=== PATIENT | female | born 1990 ===

== ENCOUNTER 2019-08-21 14:46 | Emergency (ER) | payer BC, MEDICAID, OTHER ==
[~2019-08-21] VITALS: Ht 170 cm; Wt 68.0 kg
--- NOTE | 2019-08-21 16:28 | ED GU-Female ---
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 HAVING SL CRAMPING AT TIMES. 1 PAD Nursing Sepsis Screen: No Definite Risk Source: patient Exam Limitations: no limitations History of Present Illness Date Seen by Provider: Aug 21, 2019 Time Seen by Provider: 16:27 Initial Comments To ER with intermittent lower abdominal cramping, reddish streaks on the toilet paper when wiping after urinating. This is been ongoing for a few days. She is about 6 weeks' gestation. Timing/Duration: just prior to arrival Severity/Quality: cramping Location: suprapubic Radiation: none Activities at Onset: none Prior Genitourinary Problems: none Associated Symptoms: denies symptoms Allergies and Home Medications Allergies Coded Allergies: No Known Drug Allergies (Unverified , 08/21/19) Home Medications No Active Prescriptions or Reported Meds Patient Home Medication List Home Medication List Reviewed: Yes Review of Systems Review of Systems Constitutional: see HPI EENTM: see HPI Respiratory: no symptoms reported Cardiovascular: no symptoms reported Genitourinary: no symptoms reported Musculoskeletal: no symptoms reported Skin: no symptoms reported Psychiatric/Neurological: No Symptoms Reported Past Qfvbtrj-Wxazqe-Wvumwi Hx Patient Social History Alcohol Use: Denies Use Recreational Drug Use: No Smoking Status: Never a Smoker Recent Foreign Travel: No Contact w/Someone Who Travel: No Recent Infectious Disease Expo: No Recent Hopitalizations: No Physical Abuse: No Sexual Abuse: No Past Medical History Surgeries: No Respiratory: No Cardiac: No Neurological: No Last Menstrual Period: Jun 11, 2019 Hx : 4 Hx Para: 3 Genitourinary: No Gastrointestinal: No Musculoskeletal: No Endocrine: No HEENT: No Cancer: No Psychosocial: No Integumentary: No Physical Exam Vital Signs Vital Signs - First Documented 08/21/19 14:55 Temp 37.0 Pulse 81 Resp 18 B/P (MAP) 119/78 (92) Pulse Ox 97 Capillary Refill : Less Than 3 Seconds Height, Weight, BMI Height: '" Weight: lbs. oz. kg; 23.00 BMI Method: General Appearance: WD/WN, no apparent distress HEENT: PERRL/EOMI, normal ENT inspection Respiratory: no respiratory distress, no accessory muscle use Gastrointestinal: normal bowel sounds, non tender Neurologic/Psychiatric: alert, normal mood/affect, oriented x 3 Skin: normal color, warm/dry Progress/Results/Core Measures Suspected Sepsis Recent Fever Within 48 Hours: No Infection Criteria Present: None New/Unexplained Altered Menta: No Sepsis Screen: No Definite Risk SIRS Temperature: Pulse: 81 Respiratory Rate: 18 Laboratory Tests 08/21/19 16:30: White Blood Count 7.9 Blood Pressure 119 /78 Mean: 92 Laboratory Tests 08/21/19 16:30: Platelet Count 298 Results/Orders Lab Results Laboratory Tests Test 08/21/19 16:30 Range/Units White Blood Count 7.9 4.3-11.0 10^3/uL Red Blood Count 4.56 4.35-5.85 10^6/uL Hemoglobin 13.5 11.5-16.0 G/DL Hematocrit 40 35-52 % Mean Corpuscular Volume 87 80-99 FL Mean Corpuscular Hemoglobin 30 25-34 PG Mean Corpuscular Hemoglobin Concent 34 32-36 G/DL Red Cell Distribution Width 12.9 10.0-14.5 % Platelet Count 298 130-400 10^3/uL Mean Platelet Volume 9.5 7.4-10.4 FL Neutrophils (%) (Auto) 65 42-75 % Lymphocytes (%) (Auto) 23 12-44 % Monocytes (%) (Auto) 8 0-12 % Eosinophils (%) (Auto) 3 0-10 % Basophils (%) (Auto) 0 0-10 % Neutrophils # (Auto) 5.2 1.8-7.8 X 10^3 Lymphocytes # (Auto) 1.8 1.0-4.0 X 10^3 Monocytes # (Auto) 0.7 0.0-1.0 X 10^3 Eosinophils # (Auto) 0.3 0.0-0.3 10^3/uL Basophils # (Auto) 0.0 0.0-0.1 10^3/uL Urine Color YELLOW Urine Clarity CLEAR Urine pH 6.5 5-9 Urine Specific [place] 1.020 1.016-1.022 Urine Protein NEGATIVE NEGATIVE Urine Glucose (UA) NEGATIVE NEGATIVE Urine Ketones NEGATIVE NEGATIVE Urine Nitrite NEGATIVE NEGATIVE Urine Bilirubin NEGATIVE NEGATIVE Urine Urobilinogen NORMAL NORMAL MG/DL Urine Leukocyte Esterase NEGATIVE NEGATIVE Urine RBC (Auto) 4+ H NEGATIVE Urine RBC 2-5 H /HPF Urine WBC NONE /HPF Urine Squamous Epithelial Cells RARE /HPF Urine Crystals NONE /LPF Urine Bacteria NEGATIVE /HPF Urine Casts NONE /LPF Urine Mucus NEGATIVE /LPF Urine Culture Indicated NO Human Chorionic Gonadotropin, Quant [id number] H <5 MIU/ML My Orders Orders - ROBI CONROY APRN Abo Rh Type (08/21/19 15:31) Cbc With Automated Diff (08/21/19 15:31) Ua Culture If Indicated (08/21/19 15:31) Hcg,Quantitative (08/21/19 15:31) Vital Signs/I&O 08/21/19 14:55 Temp 37.0 Pulse 81 Resp 18 B/P (MAP) 119/78 (92) Pulse Ox 97 Capillary Refill : Less Than 3 Seconds Blood Pressure Mean: 92 POS Departure Impression Primary Impression: Threatened miscarriage in early Disposition: 01 HOME, SELF-CARE Condition: Stable Departure-Patient Inst. Decision time for Depature: 17:48 [facility]errals: [facility] ([facility]Family) Primary Care Physician Patient Instructions: Threatened Miscarriage Add. Discharge Instructions: 1. Follow-up with your family provider or apprenticeship representative tomorrow morning for recheck return to ER for any concerns. All discharge instructions reviewed with patient and/or family. Voiced understanding. Scripts No Active Prescriptions or Reported Meds ROBI CONROY APRN Aug 21, 2019 16:28 POS
[2019-08-21 16:40] LABS: BASOPHILS % (AUTO) 0 % (0-10); EOSINOPHILS # (AUTO) 0.3 10^3/uL (0.0-0.3); EOSINOPHILS % (AUTO) 3 % (0-10); HEMATOCRIT 40 % (35-52); HEMOGLOBIN 13.5 G/DL (11.5-16.0); LYMPHOCYTES # (AUTO) 1.8 X 10^3 (1.0-4.0); LYMPHOCYTES % (AUTO) 23 % (12-44); MEAN CORPUSCULAR HEMOGLOBIN 30 PG (25-34); MEAN CORPUSCULAR HGB CONC 34 G/DL (32-36); MEAN CORPUSCULAR VOLUME 87 FL (80-99); MEAN PLATELET VOLUME 9.5 FL (7.4-10.4); MONOCYTES # (AUTO) 0.7 X 10^3 (0.0-1.0); MONOCYTES % (AUTO) 8 % (0-12); NEUTROPHILS # (AUTO) 5.2 X 10^3 (1.8-7.8); NEUTROPHILS % (AUTO) 65 % (42-75); PLATELET COUNT 298 10^3/uL (130-400); RED CELL DISTRIBUTION WIDTH 12.9 % (10.0-14.5); WHITE BLOOD COUNT 7.9 10^3/uL (4.3-11.0)
[2019-08-21 16:42] LABS: BILIRUBIN,URINE NEGATIVE (NEGATIVE); CLARITY,URINE CLEAR; COLOR,URINE YELLOW; GLUCOSE, URINE (UA) NEGATIVE (NEGATIVE); KETONES,URINE NEGATIVE (NEGATIVE); LEUKOCYTE ESTERASE ,URINE NEGATIVE (NEGATIVE); NITRITE,URINE NEGATIVE (NEGATIVE); PH,URINE 6.5 (5-9); PROTEIN,URINE NEGATIVE (NEGATIVE)
[2019-08-21 16:49] LABS: BACTERIA,URINE NEGATIVE /HPF; SQUAMOUS EPITHELIAL CELL,UR RARE /HPF
[2019-08-21 17:57] VITALS: BP 120/74
== END 2019-08-21 17:57 | disposition home or self-care (01) ==
LOC: ER 14:48
DX: O20.0 Threatened abortion (principal); Z3A.01 Less than 8 weeks gestation of pregnancy
CPT/HCPCS: 36415; 81000; 84702; 85025; 86900; 86901

== ENCOUNTER 2019-12-09 08:41 | Outpatient (CLI) | payer MEDICAID ==
--- NOTE | 2019-12-09 08:47 | NUR ---
Arrived to unit ambulates self with c/o abdominal pain. wt obtained and to room 315. gowned and urine sample obtained. To bed and oriented to room, call light and surroundings. bed controls explained. plan of care reviewed with pt .
[2019-12-09 09:07] VITALS: BP 133/66
[2019-12-09 09:13] VITALS: BP 133/66
--- NOTE | 2019-12-09 09:25 | NUR ---
Dr Siddiqi notified of pt arrival, gestation, c/o, assessment, vomitting x1 today with daughter +flu on Thursday, vss. NEw order received. plan of care reviewed with pt.
--- NOTE | 2019-12-09 10:31 | NUR ---
Dr Siddiqi notified of lab result for flu negative. new order for discharge received.
[2019-12-09] MEDS ORDERED: FLU QUADRIvalent (5+ YOA) 2019-2020 (AFLURIA) 0.5 ML IM ONE (10:50)
--- NOTE | 2019-12-09 11:16 | NUR ---
pt up to get dressed after flu vaccination
[2019-12-09] MEDS ORDERED: PREN-37 PO (11:18)
[2019-12-09] MEDS ORDERED: OSLT75C PO (11:18)
--- NOTE | 2019-12-09 11:20 | NUR ---
Discharge instructions explained, signed and copy to patient. pt verbalized understanding of instructions and denied questions. Ambulates self off unit to private vehicle with belongings in hand.
--- NOTE | 2019-12-12 08:17 | Physician Query-Final Dx ---
Clinic Account Progress/Dx Physician Query: Please give diagnosis Please include # weeks gestation Date of Service Dec 09, 2019 at 08:41 ALEXIA CHANG Dec 12, 2019 08:17
== END 2019-12-09 11:20 | disposition home or self-care (01) ==
LOC: WSo 08:41 → LDRP 08:43 → WSo 11:20
PROVIDERS: ATTEND Family Medicine
DX: O26.892 Other specified pregnancy related conditions, second trimester (principal); Z3A.22 22 weeks gestation of pregnancy
CPT/HCPCS: 87804; 90471; 99213

== ENCOUNTER 2020-03-27 17:20 | Inpatient (IN) | payer MEDICAID ==
[~2020-03-27] VITALS: Ht 162.6 cm; Wt 82.9 kg
[~2020-03-27 17:20] MED LIST: OSLT75C PO; PREN-37 PO
--- NOTE | 2020-03-27 17:35 | NUR ---
KOBE HERRERA admitted to room 3320-1, with an admitting diagnosis of induction of labor, on 03/27/20 from home via ambulation, accompanied by s/o.KOBE HERRERA introduced to surroundings, call light, bed controls, phone, TV, temperature control, lights, meal times, smoking policy, visitor policy, side rail policy, bathrooms and showers. Patient Rights given to patient in the handbook. KOBE HERRERA verbalizes understanding that [facility] is not responsible for the loss or damage to any personal effects or valuables that are kept in the patients posession during their hospitalization. The following Patient Care Plans were discussed with the patient: Discharge Planning, cytotec protocol, pain management. KOBE HERRERA verbalizes understanding of Interdisciplinary Patient Education. Patient and/or family were informed about the Rapid Response Team and its purpose.
[2020-03-27 18:10] VITALS: BP 131/96
[2020-03-27] MEDS ORDERED: LACTATED RINGERS 1,000 ML IV SCH (18:12)
[2020-03-27] MEDS ORDERED: MINERAL OIL CONCENTRATE 99.9% 15 ML UDC TOP PRN (18:15)
[2020-03-27] MEDS ORDERED: TERBUTALINE INJ 1 MG/ML (BRETHINE) AMP SC PRN (18:15)
[2020-03-27] MEDS ORDERED: MISOPROSTOL 100 MCG (CYTOTEC) TAB PO NR (18:15)
[2020-03-27] MEDS ORDERED: LACTATED RINGERS 1,000 ML IV ONE (18:22)
[2020-03-27] MEDS ORDERED: D5 LR IV SOLUTION 1,000 ML IV ONE (18:22)
[2020-03-27] MEDS: D5 LR IV SOLUTION 1,000 ML IV SCH (18:22)
[2020-03-27 18:54] LABS: BILIRUBIN,URINE NEGATIVE (NEGATIVE); CLARITY,URINE CLEAR; COLOR,URINE YELLOW; GLUCOSE, URINE (UA) NEGATIVE (NEGATIVE); KETONES,URINE NEGATIVE (NEGATIVE); LEUKOCYTE ESTERASE ,URINE NEGATIVE (NEGATIVE); NITRITE,URINE NEGATIVE (NEGATIVE); PH,URINE 6.5 (5-9); PROTEIN,URINE NEGATIVE (NEGATIVE)
[2020-03-27 18:54] LABS: BASOPHILS % (AUTO) 0 % (0-10); EOSINOPHILS # (AUTO) 0.2 10^3/uL (0.0-0.3); EOSINOPHILS % (AUTO) 2 % (0-10); HEMATOCRIT 34 % (35-52); HEMOGLOBIN 11.3 G/DL (11.5-16.0); LYMPHOCYTES # (AUTO) 1.6 X 10^3 (1.0-4.0); LYMPHOCYTES % (AUTO) 18 % (12-44); MEAN CORPUSCULAR HEMOGLOBIN 27 PG (25-34); MEAN CORPUSCULAR HGB CONC 33 G/DL (32-36); MEAN CORPUSCULAR VOLUME 82 FL (80-99); MEAN PLATELET VOLUME 8.9 FL (7.4-10.4); MONOCYTES # (AUTO) 0.7 X 10^3 (0.0-1.0); MONOCYTES % (AUTO) 8 % (0-12); NEUTROPHILS # (AUTO) 6.2 X 10^3 (1.8-7.8); NEUTROPHILS % (AUTO) 72 % (42-75); PLATELET COUNT 232 10^3/uL (130-400); RED CELL DISTRIBUTION WIDTH 13.9 % (10.0-14.5); WHITE BLOOD COUNT 8.6 10^3/uL (4.3-11.0)
[2020-03-27 19:03] LABS: BACTERIA,URINE TRACE /HPF; WBC,URINE RARE /HPF
[2020-03-27 20:00] VITALS: BP 122/74
--- OUTSIDE RECORDS SUMMARY | 2020-03-27 20:37 | XMS REPORT | Continuity of Care Document ---
Author Organization Unknown Address Unknown Phone Unavailable Allergies Active Description Code Type Severity Reaction Onset Reported/Identified Relationship to Patient Clinical Status Yes No Known Drug Allergies [id number] Drug Allergy Unknown N/A 08/21/2019 Medications There is no data. Problems Date Dx Coded Attending Type Code Diagnosis Diagnosed By 12/09/2019 GREGORY TREADWELL, FABIAN Solis Ot O26.8 92 OTH RELATED CONDITIONS, SECOND 12/09/2019 FABIAN JENKINS MD R Ot Z3A.2 2 22 WEEKS GESTATION OF 12/14/2019 FABIAN JENKINS MD Ot O26.8 92 OTH RELATED CONDITIONS, SECOND 12/14/2019 FABIAN JENKINS MD Ot Z3A.2 2 22 WEEKS GESTATION OF Procedures There is no data. Results Test Result Range Complete blood count (CBC) with automate d white blood cell (WBC) differential - 08/21/19 16:30 Blood leukocytes automated count (number/volume) 7.9 10*3/uL 4.3-11.0 Blood erythrocytes automated count (number/volume) 4.56 10*6/uL 4.35-5.85 Venous blood hemoglobin measurement (mass/volume) 13.5 g/dL 11.5-16.0 Blood hematocrit (volume fraction) 40 % 35-52 Automated erythrocyte mean corpuscular volume 87 [ foz_us] 80-99 Automated erythrocyte mean corpuscular h emoglobin (mass per erythrocyte) 30 pg 25-34 Automated erythrocyte mean corpuscular h emoglobin concentration measurement (mass/volume) 34 g/dL 32-36 Automated erythrocyte distribution width ratio 12. 9 % 10.0- 14.5 Automated blood platelet count (count/volume) 298 10*3/uL 130-400 Automated blood platelet mean volume measurement 9.5 [foz_us] 7.4-10.4 Automated blood neutrophils/100 leukocytes 65 % 42-75 Automated blood lymphocytes/100 leukocytes 23 % 12-44 Blood monocytes/100 leukocytes 8 % 0-12 Automated blood eosinophils/100 leukocytes 3 % 0-10 Automated blood basophils/100 leukocytes 0 % 0-10 Blood neutrophils automated count (number/volume) 5.2 10*3 1.8-7.8 Blood lymphocytes automated count (number/volume) 1.8 10*3 1.0-4.0 Blood monocytes automated count (number/volume) 0. 7 10*3 0.0-1.0 Automated eosinophil count 0.3 10*3/uL 0 .0-0.3 Automated blood basophil count (count/volume) 0.0 10*3/uL 0.0-0.1 Complete urinalysis with reflex to cultu re - 08/21/19 16:30 Urine color determination YELLOW NRG Urine clarity determination CLEAR NR G Urine pH measurement by test strip 6.5 5-9 Specific gravity of urine by test strip 1.020 1.016-1.022 Urine protein assay by test strip, semi-quantitative NEGATIVE NEGATIVE Urine glucose detection by automated test strip NE GATIVE NEGATIVE Erythrocytes detection in urine sediment by light micr oscopy 4+ NEGATIVE Urine ketones detection by automated test strip NE GATIVE NEGATIVE Urine nitrite detection by test strip NEGATIVE NEGATIVE Urine total bilirubin detection by test strip NEGA TIVE NEGATIVE Urine urobilinogen measurement by automated test strip (mass/volume) NORMAL NORMAL Urine leukocyte esterase detection by dipstick NEG ATIVE NEGATIVE Automated urine sediment erythrocyte cou nt by microscopy (number/high power field) [HPF] NRG Automated urine sediment leukocyte count by microscopy (number/high power field) NONE NRG Bacteria detection in urine sediment by light microsco py NEGATIVE NRG Squamous epithelial cells detection in u rine sediment by light microscopy RARE NRG Crystals detection in urine sediment by light microsco py NONE NRG Casts detection in urine sediment by light microscopy NONE NRG Mucus detection in urine sediment by light microscopy NEGATIVE NRG Complete urinalysis with reflex to culture NO NRG ABO+Rh group - 08/21/19 16:30 WRISTBAND NUMBER TNP NRG ABO+Rh group OP NRG Serum or plasma choriogonadotropin measu rement (units/volume) - 08/21/19 16:30 Serum or plasma choriogonadotropin measurement (units/ volume) [id number] m[iU]/mL <5 Influenza virus A and B antigen detectio n - 12/09/19 09:20 FLU RESULT NEGATIVE FOR INFLUENZA A AND B ANTIGENS BY IA NRG Complete blood count (CBC) with automate d white blood cell (WBC) differential - 03/27/20 18:30 Blood leukocytes automated count (number/volume) 8.6 10*3/uL 4.3-11.0 Blood erythrocytes automated count (number/volume) 4.18 10*6/uL 4.35-5.85 Venous blood hemoglobin measurement (mass/volume) 11.3 g/dL 11.5-16.0 Blood hematocrit (volume fraction) 34 % 35-52 Automated erythrocyte mean corpuscular volume 82 [ foz_us] 80-99 Automated erythrocyte mean corpuscular h emoglobin (mass per erythrocyte) 27 pg 25-34 Automated erythrocyte mean corpuscular h emoglobin concentration measurement (mass/volume) 33 g/dL 32-36 Automated erythrocyte distribution width ratio 13. 9 % 10.0- 14.5 Automated blood platelet count (count/volume) 232 10*3/uL 130-400 Automated blood platelet mean volume measurement 8.9 [foz_us] 7.4-10.4 Automated blood neutrophils/100 leukocytes 72 % 42-75 Automated blood lymphocytes/100 leukocytes 18 % 12-44 Blood monocytes/100 leukocytes 8 % 0-12 Automated blood eosinophils/100 leukocytes 2 % 0-10 Automated blood basophils/100 leukocytes 0 % 0-10 Blood neutrophils automated count (number/volume) 6.2 10*3 1.8-7.8 Blood lymphocytes automated count (number/volume) 1.6 10*3 1.0-4.0 Blood monocytes automated count (number/volume) 0. 7 10*3 0.0-1.0 Automated eosinophil count 0.2 10*3/uL 0 .0-0.3 Automated blood basophil count (count/volume) 0.0 10*3/uL 0.0-0.1 Complete urinalysis with reflex to cultu re - 03/27/20 18:45 Urine color determination YELLOW NRG Urine clarity determination CLEAR NR G Urine pH measurement by test strip 6.5 5-9 Specific gravity of urine by test strip 1.025 1.016-1.022 Urine protein assay by test strip, semi-quantitative NEGATIVE NEGATIVE Urine glucose detection by automated test strip NE GATIVE NEGATIVE Erythrocytes detection in urine sediment by light micr oscopy NEGATIVE NEGATIVE Urine ketones detection by automated test strip NE GATIVE NEGATIVE Urine nitrite detection by test strip NEGATIVE NEGATIVE Urine total bilirubin detection by test strip NEGA TIVE NEGATIVE Urine urobilinogen measurement by automated test strip (mass/volume) 0.2 mg/dL < = 1.0 Urine leukocyte esterase detection by dipstick NEG ATIVE NEGATIVE Automated urine sediment erythrocyte cou nt by microscopy (number/high power field) NONE NRG Automated urine sediment leukocyte count by microscopy (number/high power field) RARE NRG Bacteria detection in urine sediment by light microsco py TRACE NRG Squamous epithelial cells detection in u rine sediment by light microscopy 2-5 NRG Crystals detection in urine sediment by light microsco py NONE NRG Casts detection in urine sediment by light microscopy NONE NRG Mucus detection in urine sediment by light microscopy SMALL NRG Complete urinalysis with reflex to culture NO NRG Blood type T Indirect antibody screen pa damari - 03/27/20 19:01 WRISTBAND NUMBER [id number] NRG ABO+Rh group OP NRG Blood group antibody screen NEGATIVE NR G Encounters ACCT No. Visit Date/Time Discharge Status Pt. Type Provider Facility Loc./Unit Complaint [id number] 12/09/2019 08:41:00 020 11:20:00 DIS Outpatient FABIAN JENKINS MD [facility] WSo STOMACH DISCOMFORT [id number] 08/21/2019 14:48:00 019 17:57:00 DIS Emergency ROBI CONROY APRN [facility] ER APROX 6 WKS PREG/BLEEDI NG [id number] 03/27/2020 17:20:[address] Inpatient FABIAN JENKINS MD [facility] LDRP INDUCTION
[2020-03-28] VITALS (28 sets, daily range): BP systolic 118–147; BP diastolic 73–90
[2020-03-28] MEDS: MISOPROSTOL 100 MCG (CYTOTEC) TAB PO SCH ×3 (00:06→10:15)
[2020-03-28] MEDS ORDERED: ACETAMINOPHEN 500 MG TAB (TYLENOL) PO PRN (00:15)
[2020-03-28] MEDS: D5 LR IV SOLUTION 1,000 ML IV SCH ×3 (02:00→18:14)
[2020-03-28] MEDS: CATHETER FLUSH 10 ML SYR IV SCH ×3 (06:00→14:00)
[2020-03-28] MEDS ORDERED: OXYTOCIN PRE-MIX DRIP 500 ML IV SCH ×2 (08:41→12:44)
[2020-03-28] MEDS ORDERED: OXYTOCIN PRE-MIX DRIP 500 ML IV ONE (08:41)
[2020-03-28] MEDS ORDERED: MISOPROSTOL 200 MCG (CYTOTEC) TABLET ONE (12:11)
[2020-03-28] MEDS ORDERED: MISOPROSTOL 200 MCG (CYTOTEC) TABLET PR ONE (12:14)
[2020-03-28] MEDS ORDERED: BENZOCAINE/MENTHOL (DERMOPLAST) 60 ML CAN TP PRN (20:00)
[2020-03-28] MEDS ORDERED: WITCH HAZEL(TUCKS) 40 EA JAR TOP PRN (20:00)
[2020-03-28] MEDS: IBUPROFEN 600 MG (MOTRIN) TAB PO SCH (20:53)
[2020-03-28] MEDS: ACETAMINOPHEN 500 MG TAB (TYLENOL) PO SCH (20:53)
[2020-03-28] MEDS: DOCUSATE SODIUM 100 MG (COLACE) CAP PO SCH (20:53)
--- NOTE | 2020-03-28 22:53 | History & Physical-OB ---
OB - Chief Complaint & HPI Date/Time Date of Admission: Date of Admission: Mar 27, 2020 at 17:20 Date seen by a Provider: Mar 28, 2020 Time Seen by a Provider: 08:45 Chief Complaint/History OB-Reason for Admission/Chief: Induction of Labor (Decreased Movement) Hx : 4 Hx Para: 3 Expected Date of Delivery: Apr 04, 2020 Gestational Age in Weeks: 39 Gestational Age in Days: 0 History of Labs O+, Ab neg Rub Imm HepB/HIV/RPR NR Normal 1 hr GTT GBS neg Other Patient was seen in clinic yesterday. NST reactive but patient continued to not feel baby move after orally hydrated and after eating. Decision was made to bring patient in for IOL. Allergies and Home Medications Allergies Coded Allergies: No Known Drug Allergies (Unverified , 08/21/19) Home Medications Oseltamivir Phosphate 75 Mg Cap, 75 MG PO DAILY, (Reported) Vit/Iron Fumarate/FA 1 Each Tablet, 1 EACH PO DAILY, (Reported) Patient Home Medication List Home Medication List Reviewed: Yes OB - History Hx of Present Care: Yes Ultrasounds: Normal mid trimester US Obstetrical Complications: None Medical Complications: None Information Induced Hypertension: No Maternal Gestational Diabetes: No Hemorrhage: No Obstetrical History Hx : 4 Hx Para: 3 Hx # Term Pregnancies: 3 Number of Living Children: 3 Delivery History Adverse Rxn to Tranfusion: No Patient Past Medical History N/A Social History/Family History HIV/AIDS: No Recent Infectious Disease Expo: No Sexually Transmitted Disease: No Alcohol Use: Denies Use Recreational Drug Use: No Immunizations Hepatitis A: Yes Hepatitis B: Yes Tetanus Booster (TDap): Less than 5yrs Rubella: immune RPR/VDRL: Negative GBS Status: Negative HBsAG: Negative OB - Admission Exam Physical Exam Vitals: Vital Signs 03/28/20 19:35 Temp 36.2 Pulse 91 Resp 18 B/P (MAP) 122/86 (98) Pulse Ox 98 O2 Delivery Room Air HEENT: NCAT Heart: Rhythm Normal Lungs: Clear Abdomen: Gravid Extremities: Normal Cervical Dilatation: 4cm Effacement: 75% Station: -2 Membranes: Intact Amniotic Fluid: Clear Heart Rate: 130's Accelerations: Accelerations Present Decelerations: No Decelerations Short Term Variability: Present Contractions on Admission: 6-10 Minutes Apart Intensity: Moderate Restrepo Scoring Tool (Modified) Dilation (cm): 1-2cm (1) Effacement (%): 51-79% (2) Descent/Station: -2 (1) Cervix Consistency: Soft (2) Cervix Position: Middle/Mid-Position (1) Add 1 point for: Each previous vaginal delivery (1) Restrepo Score: 10 OB - Assessment/Plan/Diagnosis Assessment Assessment: induction of labor Admission Dx Decreased Movement Third Trimester 39 week gestation Admission Status: Inpatient Order (span 2 midnights) Reason for Inpatient Admission: Labor and delivery Plan Plan: Induction Other Plan 30 yo @ 39.0 wga here for IOL due to Decreased Movement Plan - Cytotec and Pitocin protocol - GBS neg - Patient does not desire epidural at this time FABIAN JENKINS MD Mar 28, 2020 22:53
--- NOTE | 2020-03-28 22:56 | OB Labor & Delivery Record ---
Vag Delivery Note Vag Delivery Note Date of Delivery: 03/28/20 Preoperative Diagnosis: Violet Mckay is a (30 /Para / ,Gestational Age (wks)39.0 wga here for IOL for Decreased Movement Postoperative Diagnosis: Same Surgeon: FABIAN JENKINS Rn Mental Health: None Anesthesia: None Delivery Type: @ 1205 Findings: Viable term female infant, apgars 9/9, weight 7#2, 3230 grams Lacerations: None Intact placenta with 3 vessel cord. No nuchal cord, body cord or shoulder dystocia Cytotec 800 mcg placed for hemorrhage prophylaxis Estimated Blood Loss: 300 ml Complications: None Condition: Stable Description of Procedure: The patient is a 30 year old female who presented for IOL. She was admitted and informed consent was obtained. Her labor course was unremarkable. She progressed to complete dilatation and began to push. She was then set up for delivery. The infant's head was delivered atraumatically in the SWETHA position. The shoulders and remainder of the 's body were then delivered without difficulty. Upon delivery, the head was held below the level of the perineum and the mouth and nares were bulb suctioned. The cord was doubly clamped and cut after 2 min delay and the infant was placed on maternal abdomen and attended to by the pediatric staff. An intact placenta with 3-vessel cord delivered via Aaliyah and there was found to be minimal bleeding.~ Vigorous fundal massage was performed and the fundus was found to be firm. IV oxytocin was given. Examination of the vagina and perineum revealed no lacerations that required repair. Following the repair, sponge, instrument and needle counts were correct. Mom and baby were both in stable condition in the labor suite. Vitals - Labs Vital Signs - I&O Vital Signs Date Time Temp Pulse Resp B/P (MAP) Pulse Ox O2 Delivery O2 Flow Rate FiO2 03/28/20 19:35 36.2 91 18 122/86 (98) 98 Room Air 03/28/20 15:50 37.0 103 18 132/73 (92) Room Air 03/28/20 13:18 36.3 88 18 136/75 (95) Room Air 03/28/20 13:05 36.4 86 18 134/81 (98) Room Air 03/28/20 12:50 36.7 85 18 131/79 (96) Room Air 6/10/20 12:40 36.7 70 18 136/82 (100) Room Air 03/28/20 12:20 36.6 90 18 127/75 (92) Room Air 03/28/20 12:05 77 18 136/82 (100) Room Air 03/28/20 11:50 75 18 141/90 (107) Room Air 03/28/20 11:35 96 18 147/85 (105) Room Air 03/28/20 11:05 73 18 138/88 (105) Room Air 03/28/20 10:50 36.8 88 18 137/84 (101) Room Air 03/28/20 10:35 73 18 134/84 (101) Room Air 03/28/20 10:20 73 18 130/86 (101) Room Air 03/28/20 10:05 71 18 127/81 (96) Room Air 03/28/20 09:50 82 18 125/87 (100) 98 Room Air 03/28/20 09:35 83 18 129/77 (94) 98 Room Air 03/28/20 09:20 82 18 124/77 (93) 98 Room Air 03/28/20 09:05 78 18 133/87 (102) 98 Room Air 03/28/20 08:50 78 18 133/82 (99) 98 Room Air 03/28/20 08:00 37.1 93 20 120/76 (91) Room Air 03/28/20 07:00 75 18 118/73 (88) 98 Room Air 03/28/20 06:00 70 18 131/84 (100) 97 Room Air 03/28/20 05:00 72 18 126/77 (93) 97 Room Air 03/28/20 04:00 71 18 130/74 (92) 98 Room Air 03/28/20 03:00 77 18 125/75 (92) 97 Room Air 03/28/20 02:00 72 18 126/76 (93) Room Air 03/28/20 01:00 83 18 132/78 (96) Room Air 03/28/20 00:00 36.8 75 18 98 Room Air 03/27/20 23:00 92 18 97 Room Air FABIAN JENKINS MD Mar 28, 2020 22:56
[2020-03-29 00:30] VITALS: BP 115/71
[2020-03-29 05:23] VITALS: BP 119/83
[2020-03-29] MEDS: ACETAMINOPHEN 500 MG TAB (TYLENOL) PO SCH ×2 (05:23→13:38)
[2020-03-29] MEDS: IBUPROFEN 600 MG (MOTRIN) TAB PO SCH ×2 (05:23→12:46)
[2020-03-29 06:27] LABS: BASOPHILS % (AUTO) 0 % (0-10); EOSINOPHILS # (AUTO) 0.1 10^3/uL (0.0-0.3); EOSINOPHILS % (AUTO) 1 % (0-10); HEMATOCRIT 30 % (35-52); HEMOGLOBIN 9.7 G/DL (11.5-16.0); LYMPHOCYTES # (AUTO) 1.6 X 10^3 (1.0-4.0); LYMPHOCYTES % (AUTO) 17 % (12-44); MEAN CORPUSCULAR HEMOGLOBIN 27 PG (25-34); MEAN CORPUSCULAR HGB CONC 33 G/DL (32-36); MEAN CORPUSCULAR VOLUME 83 FL (80-99); MEAN PLATELET VOLUME 9.4 FL (7.4-10.4); MONOCYTES # (AUTO) 0.8 X 10^3 (0.0-1.0); MONOCYTES % (AUTO) 8 % (0-12); NEUTROPHILS # (AUTO) 7.1 X 10^3 (1.8-7.8); NEUTROPHILS % (AUTO) 74 % (42-75); PLATELET COUNT 207 10^3/uL (130-400); RED CELL DISTRIBUTION WIDTH 13.6 % (10.0-14.5); WHITE BLOOD COUNT 9.6 10^3/uL (4.3-11.0)
[2020-03-29] MEDS ORDERED: PRENATAL VITAMIN 1 EA TAB PO SCH (07:00)
[2020-03-29 09:00] VITALS: BP 122/84
[2020-03-29] MEDS: DOCUSATE SODIUM 100 MG (COLACE) CAP PO SCH (09:00)
--- NOTE | 2020-03-29 09:00 | NUR ---
A.M. ASSESSMENT COMPLETED. VSS. CARING FOR IN ROOM. GOOD INTERACTION NOTED.
[2020-03-29] MEDS ORDERED: IBUP-844 PO (11:12)
--- NOTE | 2020-03-29 11:12 | Discharge Summary ---
Diagnosis/Chief Complaint Date of Admission Mar 27, 2020 at 17:20 Date of Discharge 03/29/2020 Admission Diagnosis Admission Diagnosis Term 39 week gestation Decreased movement Discharge Diagnosis Term Vaginal Delivery 39 week gestation Discharge Summary-Simple/Stand Procedures SROM Discharge Physical Examination Allergies: Coded Allergies: No Known Drug Allergies (Unverified , 08/21/19) Vitals & I&Os Vital Sign - Last 12Hours Date Time Temp Pulse Resp B/P (MAP) Pulse Ox O2 Delivery O2 Flow Rate FiO2 03/29/20 05:23 36.2 82 18 119/83 (95) 97 Room Air Intake and Output 03/29/20 00:00 Intake Total 500 ml Balance 500 ml General Appearance: Alert, Oriented X3, Cooperative, No Acute Distress HEENT: Mucous Memb Moist/[place] Respiratory: Clear to Auscultation, Normal Air Movement Cardiovascular: Regular Rate, No Murmurs Abdominal: Normal Bowel Sounds, Soft, Other (fundus firm and below umbilicus) Extremities: No Edema, No Tenderness/Swelling Skin: No Rashes, No Breakdown Neuro: Normal Speech, Strength at 5/5 X4 Ext, Sensation Intact, Cranial Nerves 3-12 NL Psych/Mental Status: Mental Status NL, Mood NL Hospital Course Was the Problem List Reviewed?: Yes See final discharge diagnosis. Discussion & Recommendations 30 yo G4 now P4 delivered term female via . Uncomplicated Discharge Condition at discharge stable Instructions to patient/family Please see electronic discharge instructions given to patient. Discharge Medications Reviewed and agree with Discharge Medication list on patient's Discharge Instruction sheet Clinical Quality Measures DVT/VTE Risk/Contraindication: Risk Factor Score Per Nursin RFS Level Per Nursing on Admit: 1=Low/No VTE PPX FABIAN JENKINS MD Mar 29, 2020 11:12
--- NOTE | 2020-03-29 11:13 | Discharge Summary ---
Discharge Inst-[facility] Reconcile Patient Problems Problems Reviewed?: Yes Depart Medications New, Converted or Re-Newed RX: Transmitted to Pharmacy New Medications: Ibuprofen (Ibu) 600 Mg Tablet 600 MG PO Q6H, #90 TAB Continued Medications: Vit/Iron Fumarate/FA ( Tablet) 1 Each Tablet 1 EACH PO DAILY, TAB Discontinued Medications: Oseltamivir Phosphate (Tamiflu) 75 Mg Cap 75 MG PO DAILY, CAP Follow Up/Instructions Goal/Follow Up: [address] Siddiqi Activity Activity: Activity as Tolerated NO SMOKING: NO SMOKING Nothing Inside Vagina: No Douching, No Swartz, No Tampons Diet Discharge Diet: No Restrictions Symptoms to Report to : Bleeding Excessive, Pain Increased, Fever Over 101 Degrees F For Any Problems or Questions: Contact Your Physician Copies To 1: FABIAN SIDDIQI MD, HOLLY R MD Mar 29, 2020 11:13
--- NOTE | 2020-03-29 12:00 | NUR ---
CONTINUES TO CARE FOR IN ROOM. PLANNING TO GO HOME THIS AFTERNOON.
[2020-03-29 13:00] VITALS: BP 132/76
--- NOTE | 2020-03-29 13:30 | NUR ---
STORK MEAL EATEN. PREPARING FOR DISCHARGE.
--- NOTE | 2020-03-29 14:47 | NUR ---
DISCHARGE INSTRUCTIONS REVIEWED WITH COPY TO PT. STATES UNDERSTANDING OF ALL INSTRUCTIONS AND NEED TO F/U SCHEDULED AND NEEDED.
[2020-03-29 15:00] VITALS: BP 132/76
--- NOTE | 2020-03-29 15:00 | NUR ---
DISMISSED VIA W/C WITH INFANT TO FAMILY CAR IN STABLE CONDITION ACC BY S.Archana AND STAFF.
== END 2020-03-29 15:00 | disposition home or self-care (01) | DRG 807 ==
LOC: LDRP 17:20
PROVIDERS: ADMIT Family Medicine; ATTEND Family Medicine
PROC: 3E0DXGC Introduction of Other Therapeutic Substance into Mouth and Pharynx, External Approach (ICD-10-PCS; 2020-03-27)
PROC: 10E0XZZ Delivery of Products of Conception, External Approach (ICD-10-PCS; principal; 2020-03-28)
DX: O36.8130 Decreased fetal movements, third trimester, not applicable or unspecified (principal); Z3A.39 39 weeks gestation of pregnancy; Z37.0 Single live birth
CPT/HCPCS: 36415; 81000; 85025; 86850; 86900; 86901; 87088

== ENCOUNTER 2023-05-30 14:47 | Emergency (ER) | payer MEDICAID ==
[~2023-05-30] VITALS: Ht 167 cm; Wt 73.0 kg
[~2023-05-30 14:47] MED LIST changes: +IBUP-844 PO
[2023-05-30] MEDS ORDERED: NS IV 1000 ML 1,000 ML IV STA (15:06)
--- NOTE | 2023-05-30 15:13 | ED General ---
General Chief Complaint: General Problems/Pain Stated Complaint: NAUSEA/TINGLING SENSATION Nursing Triage Note: ARRIVED VIA AMB TO ROOM 6 WITH COMPLAINTS OF NAUSEA AND TINGLING ALL OVER FOR ABOUT A WEEK. PT STATES HER LAST DAY OF AN ABX IS TODAY FOR A UTI. QUIT HARD LIQUOR 1 WEEK AGO. Source of Information: Patient Exam Limitations: No Limitations History of Present Illness Date Seen by Provider: May 30, 2023 Time Seen by Provider: 15:09 Initial Comments Patient is a 33-year-old female who presents to ED with nausea and tingling all over for about the past week. She states she was seen at the clinic about a week ago had lab work drawn diagnosed with UTI and was prescribed Macrobid. She has 1 day worth of antibiotic. She states she has not been urinating as much. Decreased appetite. She stopped drinking alcohol 1 week ago around when the symptoms started. She drank 2 years prior. Denies any drug use. She states she has numbness throughout her body. She reports diffuse abdominal discomfort. She states she feels dizzy and lightheaded. She reports dry heaving without vomiting. Few episodes of diarrhea. Denies chest pain, cough, shortness of breath, sore throat, ear pain, headache, unilateral weakness or sensory changes. Allergies and Home Medications Allergies Coded Allergies: No Known Drug Allergies (Unverified , 08/21/19) Patient Home Medication List Home Medication List Reviewed: Yes Cephalexin (Cephalexin) 500 Mg Tablet, 500 MG PO BID Prescribed by: KIRSTEN KIRKLAND on 05/30/23 1613 Ibuprofen (Ibu) 600 Mg Tablet, 600 MG PO Q6H Prescribed by: FABIAN JENKINS on 03/29/20 1112 Vit/Iron Fumarate/FA ( Tablet) 1 Each Tablet, 1 EACH PO DAILY, (Reported) Entered as Reported by: DIANNA HEWITT on 12/09/19 1118 Review of Systems Review of Systems Constitutional: No diaphoresis EENTM: No ear pain, No blurred vision, No mouth pain, No mouth swelling, No throat pain, No throat swelling Respiratory: No cough, No short of breath, No wheezing Cardiovascular: No chest pain Gastrointestinal: No abdominal pain, No diarrhea, No nausea, No vomiting Genitourinary: No decreased output, No discharge Musculoskeletal: No back pain, No joint pain Skin: No change in color, No change in hair/nails All Other Systems Reviewed Negative Unless Noted: Yes Past Zacexot-Kakpnl-Plskab Hx Patient Social History Tobacco Use?: No Substance use?: No Alcohol Use?: Yes Alcohol type: Hard Liquor Immunizations Up To Date Tetanus Booster (TDap): Less than 5yrs PED Vaccines UTD: Yes Past Medical History Surgeries: No Respiratory: No Cardiac: No Neurological: No Sexually Transmitted Disease: No HIV/AIDS: No Genitourinary: No Gastrointestinal: No Musculoskeletal: No Endocrine: No HEENT: No Cancer: No Psychosocial: No Integumentary: No Blood Disorders: No Adverse Reaction/Blood Tranf: No Family Medical History Patient reports no known family medical history. Physical Exam Vital Signs Vital Signs - First Documented 05/30/23 15:00 Temp 36.9 Pulse 100 Resp 16 B/P (MAP) 153/119 (130) Pulse Ox 99 O2 Delivery Room Air Capillary Refill : Less Than 3 Seconds Height, Weight, BMI Height: '" Weight: lbs. oz. kg; 26.00 BMI Method: General Appearance: No Apparent Distress, WD/WN Eyes: Bilateral Eye Normal Inspection, Bilateral Eye PERRL, Bilateral Eye EOMI HEENT: PERRL/EOMI, TMs Normal, Normal ENT Inspection, Pharynx Normal Neck: Full Range of Motion, Normal Inspection, Non Tender Respiratory: Chest Non Tender, Lungs Clear, Normal Breath Sounds, No Accessory Muscle Use, No Respiratory Distress Cardiovascular: Regular Rate, Rhythm, No Edema, No Gallop, No JVD Gastrointestinal: Normal Bowel Sounds, No Organomegaly, No Pulsatile Mass, Non Tender Back: Normal Inspection, No CVA Tenderness, No Vertebral Tenderness Extremity: Normal Capillary Refill Neurologic/Psychiatric: Alert, Oriented x3, No Motor/Sensory Deficits, Normal Mood/Affect, hearing aid assistant II-XII Norm as Tested Skin: Normal Color, Warm/Dry Progress/Results/Core Measures Suspected Sepsis SIRS Temperature: Pulse: 100 Respiratory Rate: 16 Laboratory Tests 05/30/23 15:08: White Blood Count 8.1 Blood Pressure 153 /119 Mean: 130 Laboratory Tests 05/30/23 15:08: Creatinine 0.74, Platelet Count 297, Total Bilirubin 1.4H Results/Orders Lab Results Laboratory Tests Test 05/30/23 15:08 05/30/23 15:18 Range/Units White Blood Count 8.1 4.3-11.0 10^3/uL Red Blood Count 3.54 L 3.80-5.11 10^6/uL Hemoglobin 13.6 11.5-16.0 g/dL Hematocrit 39 35-52 % Mean Corpuscular Volume 109 H 80-99 fL Mean Corpuscular Hemoglobin 38 H 25-34 pg Mean Corpuscular Hemoglobin Concent 35 32-36 g/dL Red Cell Distribution Width 14.4 10.0-14.5 % Platelet Count 297 130-400 10^3/uL Mean Platelet Volume 9.6 9.0-12.2 fL Immature Granulocyte % (Auto) 0 % Neutrophils (%) (Auto) 73 42-75 % Lymphocytes (%) (Auto) 18 12-44 % Monocytes (%) (Auto) 6 0-12 % Eosinophils (%) (Auto) 2 0-10 % Basophils (%) (Auto) 1 0-10 % Neutrophils # (Auto) 5.9 1.8-7.8 X 10^3 Lymphocytes # (Auto) 1.5 1.0-4.0 X 10^3 Monocytes # (Auto) 0.5 0.0-1.0 X 10^3 Eosinophils # (Auto) 0.2 0.0-0.3 10^3/uL Basophils # (Auto) 0.1 0.0-0.1 10^3/uL Immature Granulocyte # (Auto) 0.0 0.0-0.1 10^3/uL Neutrophils % (Manual) 70 % Lymphocytes % (Manual) 22 % Monocytes % (Manual) 6 % Eosinophils % (Manual) 1 % Basophils % (Manual) 1 % Hypersegmented Neutrophils MODERATE Blood Morphology Comment NORMAL Sodium Level 139 135-145 MMOL/L Potassium Level 3.8 3.6-5.0 MMOL/L Chloride Level 107 98-107 MMOL/L Carbon Dioxide Level 20 L 21-32 MMOL/L Anion Gap 12 5-14 MMOL/L Blood Urea Nitrogen 9 7-18 MG/DL Creatinine 0.74 0.60-1.30 MG/DL Estimat Glomerular Filtration Rate 111 BUN/Creatinine Ratio 12 Glucose Level 120 H 70-105 MG/DL Calcium Level 9.7 8.5-10.1 MG/DL Corrected Calcium 9.7 8.5-10.1 MG/DL Magnesium Level 1.9 1.6-2.4 MG/DL Total Bilirubin 1.4 H 0.1-1.0 MG/DL Aspartate Amino Transf (AST/SGOT) 201 H 5-34 U/L Alanine Aminotransferase (ALT/SGPT) 59 H 0-55 U/L Alkaline Phosphatase 115 40-136 U/L Total Protein 7.7 6.4-8.2 GM/DL Albumin 4.0 3.2-4.5 GM/DL Lipase 47 8-78 U/L Urine Color YELLOW Urine Clarity CLEAR Urine pH 7.5 5-9 Urine Specific [place] 1.020 1.016-1.022 Urine Protein NEGATIVE NEGATIVE Urine Glucose (UA) NEGATIVE NEGATIVE Urine Ketones NEGATIVE NEGATIVE Urine Nitrite NEGATIVE NEGATIVE Urine Bilirubin 1+ H NEGATIVE Urine Urobilinogen 4.0 < = 1.0 MG/DL Urine Leukocyte Esterase 3+ H NEGATIVE Urine RBC (Auto) NEGATIVE NEGATIVE Urine RBC NONE /HPF Urine WBC 25-50 H /HPF Urine Squamous Epithelial Cells 2-5 /HPF Urine Crystals NONE /LPF Urine Bacteria FEW H /HPF Urine Casts NONE /LPF Urine Mucus NEGATIVE /LPF Urine Culture Indicated YES Urine Test NEGATIVE NEGATIVE Urine Opiates Screen NEGATIVE NEGATIVE Urine Oxycodone Screen NEGATIVE NEGATIVE Urine Methadone Screen NEGATIVE NEGATIVE Urine Propoxyphene Screen NEGATIVE NEGATIVE Urine Barbiturates Screen NEGATIVE NEGATIVE Ur Tricyclic Antidepressants Screen NEGATIVE NEGATIVE Urine Phencyclidine Screen NEGATIVE NEGATIVE Urine Amphetamines Screen NEGATIVE NEGATIVE Urine Methamphetamines Screen NEGATIVE NEGATIVE Urine Benzodiazepines Screen NEGATIVE NEGATIVE Urine Cocaine Screen NEGATIVE NEGATIVE Urine Cannabinoids Screen NEGATIVE NEGATIVE My Orders Orders - SHANIA ROLLE Cbc And Manual Diff (05/30/23 15:06) Comprehensive Metabolic Panel (05/30/23 15:06) Lipase (05/30/23 15:06) Magnesium (05/30/23 15:06) Ua Culture If Indicated (05/30/23 15:06) Drug Screen Stat (Urine) (05/30/23 15:06) Hcg,Qualitative Urine (05/30/23 15:06) Ns Iv 1000 Ml (Sodium Chloride 0.9%) (05/30/23 15:06) Ct Head Wo (05/30/23 15:14) Urine Culture (05/30/23 15:18) Vital Signs/I&O 05/30/23 15:00 Temp 36.9 Pulse 100 Resp 16 B/P (MAP) 153/119 (130) Pulse Ox 99 O2 Delivery Room Air Capillary Refill : Less Than 3 Seconds 2 Blood Pressure Mean: 130 Departure Communication (PCP) Patient is a 33-year-old female who presents to ED with multiple complaints. Diffuse tingling, weakness, tiredness, fatigue, diffuse abdominal pain decreased urine output. Symptoms started around a week ago. She states she stopped drinking liquor around the same time. Dry heaving at home. No chest pain or shortness of breath. No known cardiac history. Denies any focal neural deficits. Was seen at the clinic diagnosed with UTI placed on Macrobid last dose of antibiotic today. Has been taking Zofran. On arrival she was slightly tachycardic but otherwise unremarkable. No tremoring, active hallucinations. No evidence of DVT. Patient was started on a liter of fluid generalized lab work with urinalysis. CBC was grossly unremarkable. Chemistry grossly unremarkable besides AST of 209, ALT 59. Due to the diffuse tingling, dizziness CT scan of the head was ordered which did not note any acute abnormality. No obvious lesions. Urinalysis was positive for UTI with leukocytes and white blood cells. Patient states she is feeling a little better. Discussed with patient her symptoms potentially could be result of alcohol withdrawal. Appears to be mild at this time. Patient does not appear toxic. due to her positive urinalysis will discharge with Keflex. She does have Zofran. Discussed importance of hydration. Did recommend starting a multivitamin. Would be concern for vitamin deficiency with her history of alcohol abuse. Not necessarily concern for stroke. Other potential etiologies would be MS lower on the differential. May need MRI for further evaluation. Did offer outpatient alcohol detox with [facility]. If any worsening symptoms such as unable to urinate, unilateral weakness, facial droop to return back to ED. Follow-up with PCP early next week for further evaluation. Recheck with urinalysis in 5 days. Vital signs stable. Impression Primary Impression: UTI (urinary tract infection) Disposition: 01 HOME, SELF-CARE Condition: Stable Departure-Patient Inst. Decision time for Depature: 16:13 Referrals: [facility] (PCP/Family) Primary Care Physician Patient Instructions: Urinary Tract Infection, Adult (DC) Add. Discharge Instructions: Recommend taking multivitamins. Take antibiotics as prescribed. Continue with your Zofran. Recommend following up with your primary care physician for further evaluation. If any worsening symptoms return back to ED All discharge instructions reviewed with patient and/or family. Voiced understanding. Scripts Cephalexin (Cephalexin) 500 Mg Tablet 500 MG PO BID for 7 Days, #14 TAB Prov: SHANIA ROLLE 05/30/23 SHANIA ROLLE May 30, 2023 15:13
[2023-05-30 15:15] LABS: BASOPHILS # (AUTO) 0.1 10^3/uL (0.0-0.1); BASOPHILS % (AUTO) 1 % (0-10); EOSINOPHILS # (AUTO) 0.2 10^3/uL (0.0-0.3); EOSINOPHILS % (AUTO) 2 % (0-10); HEMATOCRIT 39 % (35-52); HEMOGLOBIN 13.6 g/dL (11.5-16.0); LYMPHOCYTES # (AUTO) 1.5 X 10^3 (1.0-4.0); LYMPHOCYTES % (AUTO) 18 % (12-44); MEAN CORPUSCULAR HEMOGLOBIN 38 pg (25-34); MEAN CORPUSCULAR HGB CONC 35 g/dL (32-36); MEAN CORPUSCULAR VOLUME 109 fL (80-99); MEAN PLATELET VOLUME 9.6 fL (9.0-12.2); MONOCYTES # (AUTO) 0.5 X 10^3 (0.0-1.0); MONOCYTES % (AUTO) 6 % (0-12); NEUTROPHILS # (AUTO) 5.9 X 10^3 (1.8-7.8); NEUTROPHILS % (AUTO) 73 % (42-75); PLATELET COUNT 297 10^3/uL (130-400); WHITE BLOOD COUNT 8.1 10^3/uL (4.3-11.0)
[2023-05-30 15:27] LABS: POTASSIUM 3.8 MMOL/L (3.6-5.0)
[2023-05-30 15:28] LABS: CALCIUM 9.7 MG/DL (8.5-10.1)
[2023-05-30 15:29] LABS: TOTAL PROTEIN 7.7 GM/DL (6.4-8.2)
[2023-05-30 15:33] LABS: CREATININE SERUM 0.74 MG/DL (0.60-1.30)
[2023-05-30 15:35] LABS: MAGNESIUM 1.9 MG/DL (1.6-2.4)
[2023-05-30 15:38] LABS: AMPHETAMINE SCREEN, URINE NEGATIVE (NEGATIVE); BARBITURATE SCREEN URINE NEGATIVE (NEGATIVE); BENZODIAZEPINES SCREEN URINE NEGATIVE (NEGATIVE); CANNABINOID SCREEN, URINE NEGATIVE (NEGATIVE); COCAINE SCREEN URINE NEGATIVE (NEGATIVE); HCG,QUALITATIVE URINE NEGATIVE (NEGATIVE); METHADONE STAT NEGATIVE (NEGATIVE); OPIATE SCREEN URINE NEGATIVE (NEGATIVE); OXYCODONE STAT NEGATIVE (NEGATIVE); PROPOXYPHENE STAT NEGATIVE (NEGATIVE); TRICYCLIC ANTIDEPRESSANTS SCRE NEGATIVE (NEGATIVE)
[2023-05-30 15:43] LABS: CLARITY,URINE CLEAR; COLOR,URINE YELLOW; PH,URINE 7.5 (5-9); PROTEIN,URINE NEGATIVE (NEGATIVE)
[2023-05-30 15:44] LABS: BACTERIA,URINE FEW /HPF; BILIRUBIN,URINE 1+ (NEGATIVE); GLUCOSE, URINE (UA) NEGATIVE (NEGATIVE); KETONES,URINE NEGATIVE (NEGATIVE); LEUKOCYTE ESTERASE ,URINE 3+ (NEGATIVE); NITRITE,URINE NEGATIVE (NEGATIVE); WBC,URINE 25-50 /HPF
[2023-05-30 15:50] LABS: BASOPHILS % (MANUAL) 1 %; EOSINOPHILS % (MANUAL) 1 %; HYPERSEGMENTED NEUT MODERATE; LYMPHOCYTES % (MANUAL) 22 %; MONOCYTES % (MANUAL) 6 %; NEUTROPHILS % (MANUAL) 70 %
[2023-05-30 15:51] LABS: RBC MORPH NORMAL
[2023-05-30 16:01] LABS: BILIRUBIN,TOTAL 1.4 MG/DL (0.1-1.0)
--- NOTE | 2023-05-30 16:01 | Diagnostic Imaging Report ---
PROCEDURE: CT head without contrast. TECHNIQUE: Multiple contiguous axial images were obtained through the brain without the use of intravenous contrast. Auto Exposure Controls were utilized during the CT exam to meet ALARA standards for radiation dose reduction. INDICATION: Left numbness. FINDINGS: The ventricles and sulci are within normal limits. There is no hydrocephalus or cerebral edema. There is no midline shift or mass effect. There is no intracranial mass, hemorrhage or extra-axial fluid collection. The visualized paranasal sinuses and mastoid air cells are clear. There is no regional area of decreased attenuation appreciated to suggest an acute CVA. IMPRESSION: 1. No acute intracranial abnormality. 2. If there is high clinical concern for an acute CVA, further evaluation with MRI should be considered. Dictated by: Dictated on workstation # [id number]
[2023-05-30] MEDS ORDERED: CEPH500T PO (16:13)
[2023-05-30 16:16] VITALS: BP 151/102
== END 2023-05-30 16:16 | disposition home or self-care (01) ==
LOC: EDUNIT# 14:47 → ER 14:51
DX: N39.0 Urinary tract infection, site not specified (principal)
CPT/HCPCS: 36415; 70450; 80053; 80306; 81000; 83690; 83735; 84703; 85007; 85027; 87077; 87088

== ENCOUNTER 2023-06-01 22:37 | Emergency (ER) | payer MEDICAID ==
[~2023-06-01] VITALS: Ht 167.7 cm; Wt 73.4 kg
[~2023-06-01 22:37] MED LIST changes: +CEPH500T PO
--- NOTE | 2023-06-01 23:22 | ED Abdominal Pain ---
General Chief Complaint: Abdominal/GI Problems Stated Complaint: CONSTIPATION Nursing Triage Note: PATIENT STATES THAT SHE IS EXPERIENCING CONSTIPATION AND HER LAST BM WAS 05/27/23. SHE WAS SEEN HERE ON THURSDAY FOR WEAKNESS AND UTI. SHE STATES THAT SHE HAS PASSED " A LITTLE" GAS TODAY. Source of Information: Patient Exam Limitations: No Limitations History of Present Illness Date Seen by Provider: Jun 01, 2023 Time Seen by Provider: 23:22 Initial Comments Patient is a 33-year-old female who presents to the emergency room with a chief complaint of diffuse abdominal pain. She states the pain has been coming on for about a week, worse this evening. She states she has not had a bowel movement in 5 days, normally goes daily to every other day. She is about 10 days sober of half a gallon of alcohol every 3 days. She denies fevers or chills. She is nauseated. She has not vomited. She did have a little bit of solid food at 6 PM. She had a V8 juice approximately 1 to 2 hours prior to arrival. She has been trying to sip on water. She denies any daily medications. She was seen at [facility] within the last 1 to 2 weeks for urinary tract infection. She was started on 1 antibiotic and then transitioned to cephalexin which she states she is currently taking. She has never had any abdominal surgeries. She does have an implant for control. Pain is a 10 out of 10, worsened with any type of movement. She has been passing a little gas but no stool. Her did try to give her some liquid dulcolax to help with the constipation today. Timing/Duration: 1 Week Severity/Quality: Severe, Aching Location: Generalized Abdomen Radiation: No Radiation Activities at Onset: None Associated Symptoms: Nausea/Vomiting (Nausea without vomiting), Weakness Allergies and Home Medications Allergies Coded Allergies: No Known Drug Allergies (Unverified , 08/21/19) Patient Home Medication List Home Medication List Reviewed: Yes Cephalexin (Cephalexin) 500 Mg Tablet, 500 MG PO BID Prescribed by: KIRSTEN KIRKLAND on 05/30/23 1613 Ibuprofen (Ibu) 600 Mg Tablet, 600 MG PO Q6H Prescribed by: FABIAN JENKINS on 03/29/20 1112 Vit/Iron Fumarate/FA ( Tablet) 1 Each Tablet, 1 EACH PO DAILY, (Reported) Entered as Reported by: DIANNA HEWITT on 12/09/19 1118 Review of Systems Review of Systems Constitutional: see HPI EENTM: No Symptoms Reported Respiratory: No Symptoms Reported Cardiovascular: No Symptoms Reported Gastrointestinal: Abdominal Pain, Constipated, Nausea Genitourinary: No Symptoms Reported Musculoskeletal: no symptoms reported Skin: no symptoms reported Psychiatric/Neurological: Other (History of alcoholism over the past 2 years) Past Lswovpr-Qmwibv-Rfxdht Hx Immunizations Up To Date Tetanus Booster (TDap): Less than 5yrs PED Vaccines UTD: Yes Past Medical History Surgeries: No Respiratory: No Cardiac: No Neurological: No Last Menstrual Period: Jun 01, 2022 Sexually Transmitted Disease: No HIV/AIDS: No Genitourinary: No Gastrointestinal: No Musculoskeletal: No Endocrine: No HEENT: No Cancer: No Psychosocial: No Integumentary: No Blood Disorders: No Adverse Reaction/Blood Tranf: No Family Medical History Patient reports no known family medical history. Physical Exam Vital Signs Vital Signs - First Documented 06/01/23 22:43 Temp 36.8 Pulse 99 Resp 18 B/P (MAP) 141/106 (118) Pulse Ox 99 O2 Delivery Room Air Capillary Refill : Less Than 3 Seconds Height/Weight/BMI Height: '" Weight: lbs. oz. kg; 26.00 BMI Method: General Appearance: WD/WN, mild distress HEENT: PERRL/EOMI Neck: normal inspection Respiratory: lungs clear, normal breath sounds, no respiratory distress, no accessory muscle use Cardiovascular: regular rate, rhythm, tachycardia (100) Peripheral Pulses: 1+ Radial Pulses (R), 1+ Radial Pulses (L) Gastrointestinal: abnormal bowel sounds, distended, guarding, rebound, tenderness (diffuse) Rectal: normal exam, tenderness, other (no inflamed external hemorrhoids - exam was very painful for the patient. no palpable stool in the vault. no gross blood) Extremities: normal range of motion, non-tender, normal inspection, no pedal edema Neurologic/Psychiatric: alert, depressed affect Skin: normal color, warm/dry Progress/Results/Core Measures Results/Orders Lab Results Laboratory Tests Test 06/01/23 23:55 06/02/23 00:35 Range/Units White Blood Count 8.7 4.3-11.0 10^3/uL Red Blood Count 3.77 L 3.80-5.11 10^6/uL Hemoglobin 14.4 11.5-16.0 g/dL Hematocrit 41 35-52 % Mean Corpuscular Volume 108 H 80-99 fL Mean Corpuscular Hemoglobin 38 H 25-34 pg Mean Corpuscular Hemoglobin Concent 35 32-36 g/dL Red Cell Distribution Width 13.9 10.0-14.5 % Platelet Count 330 130-400 10^3/uL Mean Platelet Volume 9.4 9.0-12.2 fL Immature Granulocyte % (Auto) 1 % Neutrophils (%) (Auto) 75 42-75 % Lymphocytes (%) (Auto) 15 12-44 % Monocytes (%) (Auto) 7 0-12 % Eosinophils (%) (Auto) 2 0-10 % Basophils (%) (Auto) 1 0-10 % Neutrophils # (Auto) 6.5 1.8-7.8 10^3/uL Lymphocytes # (Auto) 1.3 1.0-4.0 10^3/uL Monocytes # (Auto) 0.6 0.0-1.0 10^3/uL Eosinophils # (Auto) 0.1 0.0-0.3 10^3/uL Basophils # (Auto) 0.1 0.0-0.1 10^3/uL Immature Granulocyte # (Auto) 0.1 0.0-0.1 10^3/uL Sodium Level 142 135-145 MMOL/L Potassium Level 4.0 3.6-5.0 MMOL/L Chloride Level 108 H 98-107 MMOL/L Carbon Dioxide Level 22 21-32 MMOL/L Anion Gap 12 5-14 MMOL/L Blood Urea Nitrogen 10 7-18 MG/DL Creatinine 0.70 0.60-1.30 MG/DL Estimat Glomerular Filtration Rate 119 BUN/Creatinine Ratio 14 Glucose Level 109 H 70-105 MG/DL Calcium Level 9.7 8.5-10.1 MG/DL Corrected Calcium 9.5 8.5-10.1 MG/DL Total Bilirubin 1.5 H 0.1-1.0 MG/DL Aspartate Amino Transf (AST/SGOT) 150 H 5-34 U/L Alanine Aminotransferase (ALT/SGPT) 60 H 0-55 U/L Alkaline Phosphatase 111 40-136 U/L Total Protein 8.3 H 6.4-8.2 GM/DL Albumin 4.3 3.2-4.5 GM/DL Lipase 28 8-78 U/L Serum Test, Qualitative NEGATIVE NEGATIVE Smear Scan YES Urine Color YELLOW Urine Clarity CLEAR Urine pH 8.5 5-9 Urine Specific [place] 1.015 L 1.016-1.022 Urine Protein 1+ H NEGATIVE Urine Glucose (UA) NEGATIVE NEGATIVE Urine Ketones 2+ H NEGATIVE Urine Nitrite NEGATIVE NEGATIVE Urine Bilirubin 1+ H NEGATIVE Urine Urobilinogen 2.0 < = 1.0 MG/DL Urine Leukocyte Esterase NEGATIVE NEGATIVE Urine RBC (Auto) NEGATIVE NEGATIVE Urine RBC 0-2 /HPF Urine WBC 2-5 /HPF Urine Squamous Epithelial Cells 2-5 /HPF Urine Crystals PRESENT H /LPF Urine Amorphous Sediment MOD [place] PHOSPHATE H /LPF Urine Bacteria FEW H /HPF Urine Casts NONE /LPF Urine Mucus SMALL H /LPF Urine Culture Indicated YES My Orders Orders - IRVING GARCÍA MD Ed Iv/Invasive Line Start (06/01/23 23:38) Cbc With Automated Diff (06/01/23 23:38) Comprehensive Metabolic Panel (06/01/23 23:38) Lipase (06/01/23 23:38) Hcg,Qualitative Serum (06/01/23 23:38) Ua Culture If Indicated (06/01/23 23:38) Ns Iv 1000 Ml (Sodium Chloride 0.9%) (06/01/23 23:38) Ondansetron Injection (Zofran Injectio (06/01/23 23:45) Fentanyl Injection (Fentanyl Injection (06/01/23 23:45) Ct Abdomen/Pelvis W (06/02/23 00:30) Iohexol Injection (Omnipaque 350 Mg/Ml 1 (06/02/23 00:45) Received Contrast (Hold Metformin- Contr (06/02/23 00:45) Ns (Ivpb) 100 Ml (Sodium Chloride 0.9% 1 (06/02/23 00:45) Urine Culture (06/02/23 00:35) Tramadol Tablet (Ultram Tablet) (06/02/23 03:00) Medications Given in ED Current Medications Medications Dose Ordered Sig/Elizabeth Route Start Time Stop Time Status Last Admin Dose Admin Fentanyl Citrate 50 mcg ONCE ONCE IVP 06/01/23 23:45 06/01/23 23:46 DC 06/02/23 00:05 50 MCG Iohexol 100 ml ONCE ONCE IV 8/15/23 00:45 06/02/23 00:46 DC 06/02/23 00:56 80 ML Ondansetron HCl 8 mg ONCE ONCE IVP 06/01/23 23:45 06/01/23 23:46 DC 06/02/23 00:06 8 MG Sodium Chloride 100 ml ONCE ONCE IV 06/02/23 00:45 06/02/23 00:46 DC 06/02/23 00:56 80 ML Tramadol HCl 50 mg ONCE ONCE PO 06/02/23 03:00 06/02/23 03:01 DC 06/02/23 03:11 50 MG Vital Signs/I&O 06/01/23 22:43 Temp 36.8 Pulse 99 Resp 18 B/P (MAP) 141/106 (118) Pulse Ox 99 O2 Delivery Room Air Blood Pressure Mean: 118 Progress Progress Note : Time: 02:57 Progress Note Patient seen and evaluated by me. Evaluation today includes physical exam, CBC, Chem-12, lipase, serum test, urinalysis. Patient also had CT abdomen and pelvis with IV contrast. Pertinent physical exam findings well-developed well-nourished female, moderate distress due to abdominal pain. Tearful. Vital signs are stable. Heart is regular, lungs are clear. Abdomen is diffusely sign ificantly tender with rebound and involuntary guarding. She has hypoactive bowel sounds. No specific point tenderness is appreciated. No other concerning physical exam findings. Differential diagnosis based on history and physical exam, partial small bowel obstruction, perforated appendicitis Labs independently reviewed and interpreted by me. Her CBC is normal. Her chemistry is pertinent for normal electrolytes, elevated total bilirubin at 1.5, elevated AST at 150 elevated ALT at 60. Her lipase is normal at 28. Her urinalysis is positive for 2+ ketones and 1+ bilirubin. No evidence for infection. CT abdomen and pelvis is remarkable for fluid distended colon with formed stool at the rectosigmoid junction. No evidence for appendicitis or perforation. Patient is treated with IV fentanyl and Zofran. She is given a liter of IV fluids. She states the fentanyl helped her abdominal pain immensely. Her rectal exam was done after the CT and was exquisitely tender. No formed stool was palpable in the vault. Discussed with the patient and her significant other at the bedside possibly doing an enema at home which I think would be very beneficial, also [id number] magnesium citrate and oral Dulcolax tablets. I encouraged oral hydration. She is given a tramadol tablet 50 mg prior to discharge to help with her discomfort throughout the rest of the morning. Return precautions to include worsening pain, fever, vomiting she is to return to the emergency room for reevaluation. Likely her ileus is due to self detoxing from alcohol over the past week. Encouraged follow-up with [facility]. Her significant other verbalized understanding of the discharge instructions as does the patient. All questions are sought and answered. Patient is stable for discharge. Diagnostic Imaging Diagonstic Imaging: CT Comments CT Abdomen and Pelvis with IV contrast - per Stat Rad -fluid present throughout the colon suggests a nonspecific diarrheal state. A small amount of formed stool is present only at the rectosigmoid and is surrounded by fluid Departure Impression Primary Impression: Abdominal pain Qualified Codes: R10.84 - Generalized abdominal pain Additional Impression: Constipation Qualified Codes: K59.00 - Constipation, unspecified Disposition: HOME, SELF-CARE Condition: Stable Departure-Patient Inst. Decision time for Depature: 02:53 Referrals: [facility] (PCP/Family) Primary Care Physician Patient Instructions: Constipation, Adult (DC) Add. Discharge Instructions: You should try and drink lots of water to stay well hydrated. Over the counter Magnesium Citrate (comes in 3 "flavors" - strawberry, grape and lemon). Follow packaging instructions to help with the constipation. Also consider doing an enema at home - I believe this could help immensely with your constipation. You can combine the Magnesium Citrate with an over the counter Dulcolax pill or Senna as well to help move bowels. If you develop a fever, persistent vomiting or worsening pain - please return to the Emergency Department for re-evaluation. You should take over the counter ibuprofen 3 pills with a little snack every 6 hours for abdominal cramping/pain. Follow up with [facility] this week. Work/School Note: Work Release Form Date Seen in the Emergency Department: Jun 02, 2023 Return to Work: Jun 03, 2023 Copy Copies To 1: MELVIN HERNANDES KATHRYN M MD Jun 01, 2023 23:22
[2023-06-01] MEDS ORDERED: NS IV 1000 ML 1,000 ML IV STA (23:38)
[2023-06-01] MEDS ORDERED: fentaNYL INJECTION 100 MCG/2 ML VIAL IVP ONE (23:45)
[2023-06-01] MEDS ORDERED: ONDANSETRON 4 MG/2 ML (SDV) Z0FRAN IVP ONE (23:45)
[2023-06-02 00:06] LABS: BASOPHILS # (AUTO) 0.1 10^3/uL (0.0-0.1); BASOPHILS % (AUTO) 1 % (0-10); EOSINOPHILS # (AUTO) 0.1 10^3/uL (0.0-0.3); EOSINOPHILS % (AUTO) 2 % (0-10); HEMATOCRIT 41 % (35-52); HEMOGLOBIN 14.4 g/dL (11.5-16.0); LYMPHOCYTES # (AUTO) 1.3 10^3/uL (1.0-4.0); LYMPHOCYTES % (AUTO) 15 % (12-44); MEAN CORPUSCULAR HEMOGLOBIN 38 pg (25-34); MEAN CORPUSCULAR HGB CONC 35 g/dL (32-36); MEAN CORPUSCULAR VOLUME 108 fL (80-99); MEAN PLATELET VOLUME 9.4 fL (9.0-12.2); MONOCYTES # (AUTO) 0.6 10^3/uL (0.0-1.0); MONOCYTES % (AUTO) 7 % (0-12); NEUTROPHILS # (AUTO) 6.5 10^3/uL (1.8-7.8); NEUTROPHILS % (AUTO) 75 % (42-75); PLATELET COUNT 330 10^3/uL (130-400); WHITE BLOOD COUNT 8.7 10^3/uL (4.3-11.0)
[2023-06-02 00:17] LABS: SMEAR SCAN COMMENT YES
[2023-06-02 00:19] LABS: ALBUMIN 4.3 GM/DL (3.2-4.5)
[2023-06-02 00:21] LABS: CALCIUM 9.7 MG/DL (8.5-10.1)
[2023-06-02 00:22] LABS: TOTAL PROTEIN 8.3 GM/DL (6.4-8.2)
[2023-06-02 00:24] LABS: BILIRUBIN,TOTAL 1.5 MG/DL (0.1-1.0)
[2023-06-02 00:26] LABS: CREATININE SERUM 0.7 MG/DL (0.60-1.30)
[2023-06-02] MEDS ORDERED: HOLD METFORMIN - RECEIVED CONTRAST 20 ML VIAL IV SCH (00:45)
[2023-06-02] MEDS ORDERED: IOHEXOL 350 MG/ML 100 ML (OMNIPAQUE 350) VIAL IV ONE (00:45)
[2023-06-02] MEDS ORDERED: NS 100 ML (IVPB) BAG IV ONE (00:45)
[2023-06-02 00:53] LABS: CLARITY,URINE CLEAR; COLOR,URINE YELLOW; GLUCOSE, URINE (UA) NEGATIVE (NEGATIVE); PH,URINE 8.5 (5-9); PROTEIN,URINE 1+ (NEGATIVE)
[2023-06-02 00:54] LABS: BACTERIA,URINE FEW /HPF; KETONES,URINE 2+ (NEGATIVE); LEUKOCYTE ESTERASE ,URINE NEGATIVE (NEGATIVE); NITRITE,URINE NEGATIVE (NEGATIVE); RBC,URINE 0-2 /HPF
[2023-06-02 00:55] LABS: AMORPHOUS SEDIMENT,UR MOD AMOR PHOSPHATE /LPF
[2023-06-02 00:56] LABS: BILIRUBIN,URINE 1+ (NEGATIVE)
[2023-06-02 03:05] VITALS: BP 140/102
--- NOTE | 2023-06-02 08:23 | Diagnostic Imaging Report ---
PROCEDURE: CT abdomen and pelvis with contrast. TECHNIQUE: Multiple contiguous axial images were obtained through the abdomen and pelvis after administration of intravenous contrast. Auto Exposure Controls were utilized during the CT exam to meet ALARA standards for radiation dose reduction. All CT scans use one or more of the following dose optimizing techniques: automated exposure control, MA and/or KvP adjustment based on patient size and exam type or iterative reconstruction. INDICATION: Severe abdominal pain. COMPARISON: None FINDINGS: Lung bases are clear. There is pectus excavatum. The heart is normal in size. The liver demonstrates diffuse fatty infiltration and is large, measuring 25 cm in length. The spleen appears normal. The pancreas is normal. The adrenal glands appear normal. The kidneys demonstrate no enhancing lesions and no hydronephrosis. The small bowel loops are nondistended without obstruction. The appendix is normal. The colon is mildly distended with air and fluid. Fluid extends down to the rectum, as well as some solid stool. No significant wall thickening is appreciated. No definite transition point is appreciated. No acute osseous abnormality is seen. No free fluid or free air is seen. The aorta is normal in caliber. IMPRESSION: 1. Air and fluid throughout the colon, consistent with diarrheal disease. No wall thickening is seen. 2. Hepatomegaly with hepatic steatosis. No significant changes from the preliminary report. Dictated by: Dictated on workstation # [id number]
== END 2023-06-02 03:14 | disposition home or self-care (01) ==
LOC: EDUNIT# 22:37 → ER 22:38
DX: K59.00 Constipation, unspecified (principal); Z28.310 Unvaccinated for COVID-19
CPT/HCPCS: 36415; 74177; 80053; 81000; 83690; 84703; 85025; 87088

== ENCOUNTER → 2023-08-26 | Outpatient (CLI) | payer MEDICAID ==
[~2023-08-26] MED LIST changes: +GADOTERATE 0.5 MMOL/ML (CLARISCAN) 20 ML VIAL IV ONE
--- NOTE | 2023-08-26 10:27 | Diagnostic Imaging Report ---
PROCEDURE: MR imaging of the brain with and without contrast. TECHNIQUE: Multiplanar, multisequence MR imaging of the brain was performed with and without contrast. INDICATION: Tingling in legs and lips. COMPARISON: CT head without contrast 05/30/2023. FINDINGS: No abnormal intracranial signal or enhancement. No restricted water diffusion or hemosiderin deposition. Normal morphology including the major midline structures, sella, posterior fossa and cerebellar pontine angle. Normal intracranial flow voids. No hydrocephalus or extra-axial fluid collections. The orbits are negative. The paranasal sinuses and mastoids are clear. Normal bone marrow signal. IMPRESSION: Normal MRI of the brain without and with IV contrast. No acute findings. Dictated by: Dictated on workstation # [id number]
== END ==
LOC: RAD 08:03
PROVIDERS: ATTEND Student in an Organized Health Care Education/Training Program
DX: R20.2 Paresthesia of skin (principal)
CPT/HCPCS: 70553